=== PATIENT | female | born 1955 | race Hispanic/Latino ===

== ENCOUNTER 2020-12-01 09:18 | Inpatient (IN) | payer BC, MEDICARE, OTHER ==
[~2020-12-01] VITALS: Ht 165.1 cm; Wt 97.7 kg
[2020-12-01] MEDS ORDERED: DEXAMETHASONE SOD PHOSPHATE 10MG/ML 1ML VIAL ONE (09:55)
[2020-12-01 10:10] LABS: LYMPHOCYTES % (AUTO) 11.5 % (21.0-51.0); MEAN CORPUSCULAR HGB CONC 33.1 g/dL (32.0-36.0); MEAN CORPUSCULAR VOLUME 90.7 fL (79-99); MONOCYTES % (AUTO) 4.8 % (3.0-13.0); NEUTROPHILS % (AUTO) 83.5 % (40.0-77.0); PLATELET COUNT (AUTO) 197 K/uL (130-400); RED CELL DISTRIBUTION WIDTH 13.2 % (11.0-15.5); WHITE BLOOD COUNT (AUTO) 5.7 K/uL (4.8-10.8)
[2020-12-01 10:15] LABS: INR 1.09 (0.85-1.15); PROTHROMBIN TIME 11.6 SEC (9.6-11.6)
[2020-12-01 10:34] LABS: ALANINE AMINOTRANSFERASE 27 U/L (12-78); ALBUMIN 3.2 g/dL (3.5-5.0); ASPARTATE AMINOTRANSFERASE 30 U/L (10-37); BILIRUBIN,TOTAL 0.4 mg/dL (0.2-1.0); CARBON DIOXIDE 30 mmol/L (21-32); CHLORIDE 101 mmol/L (101-111); CREATINE KINASE, TOTAL 131 U/L (21-232); CREATININE 1.1 mg/dL (0.5-1.5); GLOMERULAR FILTR. RATE CALC 53 mL/min (>60); GLUCOSE,RANDOM 121 mg/dL (70-105); MYOGLOBIN 76 ng/mL (10-92); POTASSIUM 3.7 mmol/L (3.5-5.1); SODIUM SERUM 139 mmol/L (136-145); TOTAL PROTEIN, SERUM 7.9 g/dL (6.0-8.3); TROPONIN I < 0.04 ng/mL (0.00-0.06); UREA NITROGEN, BLOOD 11 mg/dL (7-18)
[2020-12-01] MEDS ORDERED: GUAIFENESIN-CODEINE 5 ML SYRUP ONE (10:34)
[2020-12-01] MEDS ORDERED: AZITHROMYCIN 500MG+NS 250ML 250 ML IV ONE (11:16)
[2020-12-01] MEDS ORDERED: CEFTRIAXONE 1G VIAL ONE (11:16)
[2020-12-01 11:56] VITALS: BP 13/75
[2020-12-01] MEDS ORDERED: DIPHENHYDRAMINE HCL 25 MG CAPSULE PO PRN (12:15)
[2020-12-01] MEDS ORDERED: ONDANSETRON 4MG INJ IV PRN (12:15)
[2020-12-01] MEDS: ALBUTEROL INHALER 90MCG/INH IH SCH ×3 (12:15→20:01)
[2020-12-01] MEDS ORDERED: NITROGLYCERIN 0.4 MG SL TAB SL PRN (12:15)
[2020-12-01] MEDS ORDERED: ERGOCALCIFEROL (VITAMIN D2) 50,000 UNIT CAPSULE PO SCH (12:15)
[2020-12-01] MEDS ORDERED: ACETAMINOPHEN 325 MG TAB PO PRN ×2 (12:15)
[2020-12-01] MEDS ORDERED: ASCORBIC ACID 500 MG TAB ONE (13:24)
[2020-12-01] MEDS ORDERED: ACETYLCYSTEINE 600 MG CAPSULE ONE (13:25)
[2020-12-01] MEDS ORDERED: ZINC SULFATE 220 CAPSULE ONE (13:25)
[2020-12-01] MEDS ORDERED: FAMOTIDINE 20MG TAB ONE (13:25)
[2020-12-01] MEDS ORDERED: ERGOCALCIFEROL (VITAMIN D2) 50,000 UNIT CAPSULE ONE (13:25)
[2020-12-01 16:00] VITALS: BP 123/61
[2020-12-01] MEDS: HEPARIN 5,000 UNIT VIAL SQ SCH (19:15)
[2020-12-01 20:00] VITALS: BP 129/73
[2020-12-01] MEDS: FAMOTIDINE 20MG TAB PO SCH (20:03)
[2020-12-01] MEDS: ACETYLCYSTEINE 600 MG CAPSULE PO SCH (20:03)
[2020-12-01 22:16] LABS: ABG BASE EXCESS 1.1 mmol/L (-2.0-3.0); ABG HCO3 26.4 mmol/L (21.0-28.0); ABG OXYGEN SATURATION 97.8 % (95.0-99.0); ABG PCO2 45 mmHg (32-45)
[2020-12-02] VITALS: BP 132/76
[2020-12-02] MEDS: ALBUTEROL INHALER 90MCG/INH IH SCH ×6 (00:08→20:56)
[2020-12-02] MEDS: HEPARIN 5,000 UNIT VIAL SQ SCH ×2 (03:20→10:19)
[2020-12-02 04:00] VITALS: BP 141/67
[2020-12-02 04:04] LABS: HEMATOCRIT 38.1 % (36-48); LYMPHOCYTES % (AUTO) 18.8 % (21.0-51.0); MEAN CORPUSCULAR HEMOGLOBIN 29.6 pg (27.0-33.0); MEAN CORPUSCULAR HGB CONC 32.3 g/dL (32.0-36.0); MEAN CORPUSCULAR VOLUME 91.8 fL (79-99); MONOCYTES % (AUTO) 4.2 % (3.0-13.0); NEUTROPHILS % (AUTO) 76.7 % (40.0-77.0); PLATELET COUNT (AUTO) 205 K/uL (130-400); RED BLOOD CELL COUNT(AUTO) 4.15 MIL/uL (4.00-5.50)
[2020-12-02 04:16] LABS: ALBUMIN 3.2 g/dL (3.5-5.0); BILIRUBIN,TOTAL 0.3 mg/dL (0.2-1.0); CREATININE 0.9 mg/dL (0.5-1.5); POTASSIUM 3.9 mmol/L (3.5-5.1); TOTAL PROTEIN, SERUM 8.2 g/dL (6.0-8.3)
[2020-12-02] MEDS ORDERED: PHARMACY COMMUNICATION**REMDESIVIR ORDER MISC SCH (07:15)
[2020-12-02] MEDS ORDERED: REMDESIVIR (EUA) 520 200 MG in 0.9% NACL 250ML 250 ML IV ONE (07:30)
[2020-12-02] MEDS ORDERED: COMPOUND IV REFRIGERATED 1 EACH IVSOLN MISC PRN (07:30)
[2020-12-02 08:15] VITALS: BP 165/78
[2020-12-02] MEDS ORDERED: ENOXAPARIN SODIUM 40 MG/0.4 ML SYRINGE SQ SCH (09:00)
[2020-12-02] MEDS ORDERED: DEXAMETHASONE SOD PHOSPHATE 4 MG/ML 1ML VIAL IVP SCH (09:00)
[2020-12-02] MEDS: FAMOTIDINE 20MG TAB PO SCH ×2 (09:53→19:51)
[2020-12-02] MEDS: ZINC SULFATE 220 CAPSULE PO SCH (09:53)
[2020-12-02] MEDS: ASCORBIC ACID 500 MG TAB PO SCH (09:53)
[2020-12-02] MEDS: ACETYLCYSTEINE 600 MG CAPSULE PO SCH ×2 (09:54→19:51)
[2020-12-02] MEDS: AZITHROMYCIN 500MG+NS 250ML 250 ML IV SCH (09:54)
[2020-12-02] MEDS: CEFTRIAXONE 1G VIAL IV SCH (09:54)
[2020-12-02 12:00] VITALS: BP 121/60
[2020-12-02 16:04] VITALS: BP 133/66
[2020-12-02 20:00] VITALS: BP 156/72
[2020-12-03] MEDS: ALBUTEROL INHALER 90MCG/INH IH SCH ×6 (00:19→20:26)
[2020-12-03 00:36] VITALS: BP 133/62
[2020-12-03] MEDS: REMDESIVIR LABS MISC SCH (05:04)
[2020-12-03 05:16] VITALS: BP 130/52
[2020-12-03 06:11] LABS: LYMPHOCYTES % (AUTO) 9.2 % (21.0-51.0); MEAN CORPUSCULAR HEMOGLOBIN 29.7 pg (27.0-33.0); MEAN CORPUSCULAR HGB CONC 32.2 g/dL (32.0-36.0); MEAN CORPUSCULAR VOLUME 92.3 fL (79-99); MONOCYTES % (AUTO) 3.2 % (3.0-13.0); NEUTROPHILS % (AUTO) 87.3 % (40.0-77.0); PLATELET COUNT (AUTO) 214 K/uL (130-400); RED BLOOD CELL COUNT(AUTO) 4.01 MIL/uL (4.00-5.50); RED CELL DISTRIBUTION WIDTH 13.2 % (11.0-15.5); WHITE BLOOD COUNT (AUTO) 9.5 K/uL (4.8-10.8)
[2020-12-03 06:37] LABS: ALBUMIN 2.8 g/dL (3.5-5.0); BILIRUBIN,TOTAL 0.3 mg/dL (0.2-1.0); CREATININE 0.9 mg/dL (0.5-1.5); POTASSIUM 3.8 mmol/L (3.5-5.1); TOTAL PROTEIN, SERUM 7.6 g/dL (6.0-8.3)
[2020-12-03 06:51] LABS: CRP QUANTITATIVE 296.2 mg/L (0.00-9.0)
[2020-12-03] MEDS: ACETYLCYSTEINE 600 MG CAPSULE PO SCH ×2 (07:47→20:26)
[2020-12-03] MEDS: AZITHROMYCIN 500MG+NS 250ML 250 ML IV SCH (07:47)
[2020-12-03] MEDS: CEFTRIAXONE 1G VIAL IV SCH (07:48)
[2020-12-03] MEDS: ZINC SULFATE 220 CAPSULE PO SCH (07:48)
[2020-12-03] MEDS: ASCORBIC ACID 500 MG TAB PO SCH (07:48)
[2020-12-03] MEDS: ENOXAPARIN SODIUM 40 MG/0.4 ML SYRINGE SQ SCH (07:48)
[2020-12-03] MEDS: FAMOTIDINE 20MG TAB PO SCH ×2 (07:48→20:26)
[2020-12-03 08:21] VITALS: BP 126/58
[2020-12-03 11:20] VITALS: BP 145/77
[2020-12-03] MEDS: REMDESIVIR (EUA) 520 100 MG in 0.9% NACL 250ML 250 ML IV SCH (12:20)
[2020-12-03] MEDS ORDERED: GUAIFENESIN-DM 200/20 MG 10 ML PO PRN (12:45)
[2020-12-03] MEDS: SOLU-MEDROL 125MG VIAL IVP SCH ×2 (15:15→20:27)
[2020-12-03] MEDS ORDERED: SOLU-MEDROL 125MG VIAL ONE (15:15)
[2020-12-03 16:19] VITALS: BP 165/77
[2020-12-03 20:31] VITALS: BP 169/56
[2020-12-04] VITALS (38 sets, daily range): BP systolic 134–167; BP diastolic 43–88
[2020-12-04] MEDS: ALBUTEROL INHALER 90MCG/INH IH SCH ×6 (01:05→21:00)
[2020-12-04 03:18] LABS: BASOPHILS % (AUTO) 0.1 % (0.0-5.0); HEMATOCRIT 37.4 % (36-48); MEAN CORPUSCULAR HGB CONC 32.9 g/dL (32.0-36.0); MEAN CORPUSCULAR VOLUME 91.2 fL (79-99); MONOCYTES % (AUTO) 1.6 % (3.0-13.0); NEUTROPHILS % (AUTO) 90.8 % (40.0-77.0); PLATELET COUNT (AUTO) 228 K/uL (130-400); RED CELL DISTRIBUTION WIDTH 13.2 % (11.0-15.5); WHITE BLOOD COUNT (AUTO) 8.2 K/uL (4.8-10.8)
[2020-12-04] MEDS: REMDESIVIR LABS MISC SCH (03:19)
[2020-12-04] MEDS: SOLU-MEDROL 125MG VIAL IVP SCH ×4 (03:19→21:21)
[2020-12-04 03:30] LABS: ALBUMIN 2.7 g/dL (3.5-5.0); BILIRUBIN,TOTAL 0.3 mg/dL (0.2-1.0); CREATININE 0.9 mg/dL (0.5-1.5); POTASSIUM 3.9 mmol/L (3.5-5.1); TOTAL PROTEIN, SERUM 7.8 g/dL (6.0-8.3)
[2020-12-04 03:44] LABS: CRP QUANTITATIVE 382.2 mg/L (0.00-9.0)
[2020-12-04] MEDS: FAMOTIDINE 20MG TAB PO SCH ×2 (09:13→21:18)
[2020-12-04] MEDS: ACETYLCYSTEINE 600 MG CAPSULE PO SCH ×2 (09:13→21:19)
[2020-12-04] MEDS: CEFTRIAXONE 1G VIAL IV SCH (09:13)
[2020-12-04] MEDS: AZITHROMYCIN 500MG+NS 250ML 250 ML IV SCH (09:13)
[2020-12-04] MEDS: ZINC SULFATE 220 CAPSULE PO SCH (09:13)
[2020-12-04] MEDS: ASCORBIC ACID 500 MG TAB PO SCH (09:13)
[2020-12-04] MEDS: ENOXAPARIN SODIUM 40 MG/0.4 ML SYRINGE SQ SCH (09:14)
[2020-12-04 12:39] LABS: ABG BASE EXCESS 0.1 mmol/L (-2.0-3.0); ABG HCO3 24.6 mmol/L (21.0-28.0); ABG PCO2 40 mmHg (32-45)
[2020-12-04] MEDS ORDERED: LORAZEPAM 2 MG/ML 1 ML VIAL IVP PRN (12:45)
[2020-12-04] MEDS: REMDESIVIR (EUA) 520 100 MG in 0.9% NACL 250ML 250 ML IV SCH (13:20)
[2020-12-05] VITALS (95 sets, daily range): BP systolic 117–175; BP diastolic 44–109
[2020-12-05] MEDS: ALBUTEROL INHALER 90MCG/INH IH SCH ×6 (00:15→20:31)
[2020-12-05] MEDS: SOLU-MEDROL 125MG VIAL IVP SCH ×4 (02:51→20:42)
[2020-12-05 04:57] LABS: ALBUMIN 2.6 g/dL (3.5-5.0); BILIRUBIN,DIRECT 0.1 mg/dL (0.0-0.3); BILIRUBIN,TOTAL 0.3 mg/dL (0.2-1.0); CREATININE 0.9 mg/dL (0.5-1.5); POTASSIUM 3.8 mmol/L (3.5-5.1); TOTAL PROTEIN, SERUM 7.4 g/dL (6.0-8.3)
[2020-12-05 05:11] LABS: CRP QUANTITATIVE 221.9 mg/L (0.00-9.0)
[2020-12-05] MEDS: REMDESIVIR LABS MISC SCH (06:00)
[2020-12-05 09:46] LABS: ABG BASE EXCESS 2.5 mmol/L (-2.0-3.0); ABG HCO3 26.9 mmol/L (21.0-28.0); ABG OXYGEN SATURATION 95.9 % (95.0-99.0); ABG PCO2 41 mmHg (32-45)
[2020-12-05] MEDS: ASCORBIC ACID 500 MG TAB PO SCH (09:57)
[2020-12-05] MEDS: ACETYLCYSTEINE 600 MG CAPSULE PO SCH ×2 (09:57→20:41)
[2020-12-05] MEDS: FAMOTIDINE 20MG TAB PO SCH ×2 (09:57→20:42)
[2020-12-05] MEDS: CEFTRIAXONE 1G VIAL IV SCH (09:57)
[2020-12-05] MEDS: ENOXAPARIN SODIUM 40 MG/0.4 ML SYRINGE SQ SCH (09:57)
[2020-12-05] MEDS: ZINC SULFATE 220 CAPSULE PO SCH (09:57)
[2020-12-05] MEDS: AZITHROMYCIN 500MG+NS 250ML 250 ML IV SCH (09:57)
[2020-12-05] MEDS: REMDESIVIR (EUA) 520 100 MG in 0.9% NACL 250ML 250 ML IV SCH (14:57)
[2020-12-06] VITALS (46 sets, daily range): BP systolic 117–178; BP diastolic 38–93
[2020-12-06] MEDS: ALBUTEROL INHALER 90MCG/INH IH SCH ×6 (00:13→21:21)
[2020-12-06] MEDS: SOLU-MEDROL 125MG VIAL IVP SCH ×4 (03:26→21:20)
[2020-12-06] MEDS: REMDESIVIR LABS MISC SCH (05:21)
[2020-12-06 06:09] LABS: BASOPHILS % (AUTO) 0.1 % (0.0-5.0); HEMATOCRIT 38.4 % (36-48); LYMPHOCYTES % (AUTO) 5.1 % (21.0-51.0); MEAN CORPUSCULAR HEMOGLOBIN 29.8 pg (27.0-33.0); MEAN CORPUSCULAR HGB CONC 32.3 g/dL (32.0-36.0); MEAN CORPUSCULAR VOLUME 92.3 fL (79-99); NEUTROPHILS % (AUTO) 89.5 % (40.0-77.0); NUCLEATED RED BLOOD CELLS 0.2 % (0.0-0.19); PLATELET COUNT (AUTO) 292 K/uL (130-400); RED BLOOD CELL COUNT(AUTO) 4.16 MIL/uL (4.00-5.50); RED CELL DISTRIBUTION WIDTH 13.2 % (11.0-15.5); WHITE BLOOD COUNT (AUTO) 8.8 K/uL (4.8-10.8)
[2020-12-06 07:17] LABS: ALBUMIN 2.7 g/dL (3.5-5.0); BILIRUBIN,TOTAL 0.3 mg/dL (0.2-1.0); CREATININE 0.9 mg/dL (0.5-1.5); CRP QUANTITATIVE 119.2 mg/L (0.00-9.0); POTASSIUM 3.7 mmol/L (3.5-5.1); TOTAL PROTEIN, SERUM 7.2 g/dL (6.0-8.3)
[2020-12-06] MEDS: ACETYLCYSTEINE 600 MG CAPSULE PO SCH ×2 (07:58→21:20)
[2020-12-06] MEDS: FAMOTIDINE 20MG TAB PO SCH ×2 (07:58→21:20)
[2020-12-06] MEDS: ZINC SULFATE 220 CAPSULE PO SCH (07:58)
[2020-12-06] MEDS: ENOXAPARIN SODIUM 40 MG/0.4 ML SYRINGE SQ SCH (07:58)
[2020-12-06] MEDS: ASCORBIC ACID 500 MG TAB PO SCH (07:58)
[2020-12-06] MEDS ORDERED: LABETALOL 20MG SYG IV PRN (08:30)
[2020-12-06] MEDS: REMDESIVIR (EUA) 520 100 MG in 0.9% NACL 250ML 250 ML IV SCH (16:08)
[2020-12-06 21:56] LABS: APPEARANCE,URINE Clear (CLEAR); BILIRUBIN,URINE Negative (NEGATIVE); COLOR,URINE Yellow (YELLOW); GLUCOSE, URINE (UA) Negative (NEGATIVE); KETONES,URINE Trace mg/dL (NEGATIVE); LEUKOCYTE ESTERASE ,URINE Negative (NEGATIVE); NITRATE,URINE Negative (NEGATIVE); OCCULT BLOOD,URINE Negative (NEGATIVE); PROTEIN,URINE POS 1+ mg/dL (NEGATIVE)
[2020-12-06 22:02] LABS: BACTERIA,URINE Rare /HPF (None Seen); MUCUS,URINE Rare LPF (None Seen); RBC,URINE 0-1 /HPF (0-1); SQUAMOUS EPITHELIAL CELL,UR Few /HPF (0-2); WBC,URINE 0-1 /HPF (0-1); YEAST,URINE BUDDING Rare /HPF (None Seen)
[2020-12-07] VITALS (20 sets, daily range): BP systolic 131–178; BP diastolic 53–103
[2020-12-07] MEDS: ALBUTEROL INHALER 90MCG/INH IH SCH ×6 (00:51→20:12)
[2020-12-07] MEDS: SOLU-MEDROL 125MG VIAL IVP SCH ×4 (04:01→20:18)
[2020-12-07] MEDS: REMDESIVIR LABS MISC SCH (05:12)
[2020-12-07 05:35] LABS: BASOPHILS % (AUTO) 0.2 % (0.0-5.0); HEMATOCRIT 38.1 % (36-48); LYMPHOCYTES % (AUTO) 5.7 % (21.0-51.0); MEAN CORPUSCULAR HEMOGLOBIN 29.7 pg (27.0-33.0); MEAN CORPUSCULAR HGB CONC 32.8 g/dL (32.0-36.0); MEAN CORPUSCULAR VOLUME 90.5 fL (79-99); MONOCYTES % (AUTO) 3.4 % (3.0-13.0); NEUTROPHILS % (AUTO) 87.8 % (40.0-77.0); NUCLEATED RED BLOOD CELLS 0.3 % (0.0-0.19); PLATELET COUNT (AUTO) 285 K/uL (130-400); RED BLOOD CELL COUNT(AUTO) 4.21 MIL/uL (4.00-5.50); RED CELL DISTRIBUTION WIDTH 12.8 % (11.0-15.5); WHITE BLOOD COUNT (AUTO) 6.5 K/uL (4.8-10.8)
[2020-12-07 05:54] LABS: HEMOGLOBIN A1C 5.8 % (4.0-6.0)
[2020-12-07 06:01] LABS: CREATININE 0.9 mg/dL (0.5-1.5); CRP QUANTITATIVE 65.4 mg/L (0.00-9.0); POTASSIUM 3.7 mmol/L (3.5-5.1)
[2020-12-07] MEDS ORDERED: AMLODIPINE 5 MG TAB ONE (08:40)
[2020-12-07] MEDS: ACETYLCYSTEINE 600 MG CAPSULE PO SCH ×2 (08:41→20:11)
[2020-12-07] MEDS: AMLODIPINE 5 MG TAB PO SCH (08:41)
[2020-12-07] MEDS: ENOXAPARIN SODIUM 40 MG/0.4 ML SYRINGE SQ SCH (08:41)
[2020-12-07] MEDS: ASCORBIC ACID 500 MG TAB PO SCH (08:42)
[2020-12-07] MEDS: ZINC SULFATE 220 CAPSULE PO SCH (08:42)
[2020-12-07] MEDS: FAMOTIDINE 20MG TAB PO SCH ×2 (08:42→20:10)
[2020-12-08] VITALS (24 sets, daily range): BP systolic 118–155; BP diastolic 52–97
[2020-12-08] MEDS: ALBUTEROL INHALER 90MCG/INH IH SCH ×6 (00:33→20:16)
[2020-12-08] MEDS: SOLU-MEDROL 125MG VIAL IVP SCH ×4 (03:01→20:16)
[2020-12-08 04:54] LABS: BASOPHILS % (AUTO) 0.2 % (0.0-5.0); HEMATOCRIT 40.3 % (36-48); MEAN CORPUSCULAR HEMOGLOBIN 29.4 pg (27.0-33.0); MEAN CORPUSCULAR HGB CONC 32.5 g/dL (32.0-36.0); MEAN CORPUSCULAR VOLUME 90.4 fL (79-99); MONOCYTES % (AUTO) 3.5 % (3.0-13.0); NEUTROPHILS % (AUTO) 88.1 % (40.0-77.0); PLATELET COUNT (AUTO) 326 K/uL (130-400); RED BLOOD CELL COUNT(AUTO) 4.46 MIL/uL (4.00-5.50); RED CELL DISTRIBUTION WIDTH 12.7 % (11.0-15.5); WHITE BLOOD COUNT (AUTO) 9.7 K/uL (4.8-10.8)
[2020-12-08 05:12] LABS: ALBUMIN 2.7 g/dL (3.5-5.0); BILIRUBIN,TOTAL 0.4 mg/dL (0.2-1.0); CREATININE 0.9 mg/dL (0.5-1.5); CRP QUANTITATIVE 37.5 mg/L (0.00-9.0); POTASSIUM 3.9 mmol/L (3.5-5.1)
[2020-12-08] MEDS: ASCORBIC ACID 500 MG TAB PO SCH (08:27)
[2020-12-08] MEDS: ACETYLCYSTEINE 600 MG CAPSULE PO SCH ×2 (08:27→20:14)
[2020-12-08] MEDS: AMLODIPINE 5 MG TAB PO SCH (08:27)
[2020-12-08] MEDS: ZINC SULFATE 220 CAPSULE PO SCH (08:27)
[2020-12-08] MEDS: ENOXAPARIN SODIUM 40 MG/0.4 ML SYRINGE SQ SCH (08:27)
[2020-12-08] MEDS: FAMOTIDINE 20MG TAB PO SCH ×2 (08:27→20:14)
[2020-12-09] VITALS (21 sets, daily range): BP systolic 117–149; BP diastolic 49–105
[2020-12-09] MEDS: ALBUTEROL INHALER 90MCG/INH IH SCH ×6 (00:30→20:52)
[2020-12-09] MEDS: SOLU-MEDROL 125MG VIAL IVP SCH ×4 (03:08→20:52)
[2020-12-09 05:39] LABS: BASOPHILS % (AUTO) 0.3 % (0.0-5.0); HEMATOCRIT 39.3 % (36-48); LYMPHOCYTES % (AUTO) 2.4 % (21.0-51.0); MEAN CORPUSCULAR HEMOGLOBIN 29.9 pg (27.0-33.0); MEAN CORPUSCULAR HGB CONC 33.3 g/dL (32.0-36.0); MEAN CORPUSCULAR VOLUME 89.7 fL (79-99); MONOCYTES % (AUTO) 2.4 % (3.0-13.0); NEUTROPHILS % (AUTO) 90.9 % (40.0-77.0); NUCLEATED RED BLOOD CELLS 0.2 % (0.0-0.19); PLATELET COUNT (AUTO) 304 K/uL (130-400); RED BLOOD CELL COUNT(AUTO) 4.38 MIL/uL (4.00-5.50); RED CELL DISTRIBUTION WIDTH 12.6 % (11.0-15.5); WHITE BLOOD COUNT (AUTO) 10.1 K/uL (4.8-10.8)
[2020-12-09 06:00] LABS: CREATININE 0.9 mg/dL (0.5-1.5); CRP QUANTITATIVE 22.2 mg/L (0.00-9.0); POTASSIUM 4.1 mmol/L (3.5-5.1)
[2020-12-09] MEDS: ACETYLCYSTEINE 600 MG CAPSULE PO SCH ×2 (08:32→20:53)
[2020-12-09] MEDS: FAMOTIDINE 20MG TAB PO SCH ×2 (08:32→20:52)
[2020-12-09] MEDS: ENOXAPARIN SODIUM 40 MG/0.4 ML SYRINGE SQ SCH (08:32)
[2020-12-09] MEDS: ZINC SULFATE 220 CAPSULE PO SCH (08:33)
[2020-12-09] MEDS: ASCORBIC ACID 500 MG TAB PO SCH (08:33)
[2020-12-09] MEDS: AMLODIPINE 5 MG TAB PO SCH (08:33)
[2020-12-10] VITALS (7 sets, daily range): BP systolic 109–147; BP diastolic 56–72
[2020-12-10] MEDS: ALBUTEROL INHALER 90MCG/INH IH SCH ×5 (00:21→20:47)
[2020-12-10] MEDS: SOLU-MEDROL 125MG VIAL IVP SCH ×4 (04:22→21:52)
[2020-12-10 07:49] LABS: BASOPHILS % (AUTO) 0.2 % (0.0-5.0); HEMATOCRIT 40.3 % (36-48); LYMPHOCYTES % (AUTO) 2.9 % (21.0-51.0); MEAN CORPUSCULAR HEMOGLOBIN 29.6 pg (27.0-33.0); MEAN CORPUSCULAR HGB CONC 32.8 g/dL (32.0-36.0); MEAN CORPUSCULAR VOLUME 90.4 fL (79-99); MONOCYTES % (AUTO) 2.3 % (3.0-13.0); NEUTROPHILS % (AUTO) 91.3 % (40.0-77.0); NUCLEATED RED BLOOD CELLS 0.2 % (0.0-0.19); PLATELET COUNT (AUTO) 293 K/uL (130-400); RED BLOOD CELL COUNT(AUTO) 4.46 MIL/uL (4.00-5.50); RED CELL DISTRIBUTION WIDTH 12.8 % (11.0-15.5); WHITE BLOOD COUNT (AUTO) 11.2 K/uL (4.8-10.8)
[2020-12-10 08:20] LABS: ALBUMIN 2.7 g/dL (3.5-5.0); BILIRUBIN,TOTAL 0.6 mg/dL (0.2-1.0); CREATININE 0.9 mg/dL (0.5-1.5); CRP QUANTITATIVE 17.4 mg/L (0.00-9.0); TOTAL PROTEIN, SERUM 6.6 g/dL (6.0-8.3)
[2020-12-10 08:55] LABS: ERYTHROCYTE SEDIMENTATION RATE 68 MM/HR (0-30)
[2020-12-10] MEDS: ZINC SULFATE 220 CAPSULE PO SCH (10:30)
[2020-12-10] MEDS: ACETYLCYSTEINE 600 MG CAPSULE PO SCH ×2 (10:30→20:41)
[2020-12-10] MEDS: AMLODIPINE 5 MG TAB PO SCH (10:31)
[2020-12-10] MEDS: FAMOTIDINE 20MG TAB PO SCH ×2 (10:31→20:41)
[2020-12-10] MEDS: ASCORBIC ACID 500 MG TAB PO SCH (10:31)
[2020-12-10] MEDS: ENOXAPARIN SODIUM 40 MG/0.4 ML SYRINGE SQ SCH (10:35)
[2020-12-10 20:41] LABS: HEMATOCRIT 38.7 % (36-48); MEAN CORPUSCULAR HEMOGLOBIN 29.4 pg (27.0-33.0); MEAN CORPUSCULAR HGB CONC 32.3 g/dL (32.0-36.0); MEAN CORPUSCULAR VOLUME 91.1 fL (79-99); RED BLOOD CELL COUNT(AUTO) 4.25 MIL/uL (4.00-5.50); WHITE BLOOD COUNT (AUTO) 13.1 K/uL (4.8-10.8)
[2020-12-11] VITALS: BP 136/61
[2020-12-11] MEDS: ALBUTEROL INHALER 90MCG/INH IH SCH ×6 (00:30→20:41)
[2020-12-11] MEDS: SOLU-MEDROL 125MG VIAL IVP SCH ×4 (03:39→20:32)
[2020-12-11 04:00] VITALS: BP 121/55
[2020-12-11 05:51] LABS: BASOPHILS % (AUTO) 0.2 % (0.0-5.0); HEMATOCRIT 37.6 % (36-48); LYMPHOCYTES % (AUTO) 2.2 % (21.0-51.0); MEAN CORPUSCULAR HEMOGLOBIN 29.7 pg (27.0-33.0); NEUTROPHILS % (AUTO) 92.8 % (40.0-77.0); PLATELET COUNT (AUTO) 239 K/uL (130-400); RED BLOOD CELL COUNT(AUTO) 4.18 MIL/uL (4.00-5.50); RED CELL DISTRIBUTION WIDTH 12.8 % (11.0-15.5); WHITE BLOOD COUNT (AUTO) 11.4 K/uL (4.8-10.8)
[2020-12-11 06:02] LABS: ALBUMIN 2.4 g/dL (3.5-5.0); BILIRUBIN,TOTAL 0.5 mg/dL (0.2-1.0); CREATININE 0.9 mg/dL (0.5-1.5); MAGNESIUM 2.4 mg/dL (1.80-2.40); POTASSIUM 4.2 mmol/L (3.5-5.1)
[2020-12-11 08:00] VITALS: BP 135/68
[2020-12-11] MEDS: AMLODIPINE 5 MG TAB PO SCH (09:05)
[2020-12-11] MEDS: ZINC SULFATE 220 CAPSULE PO SCH (09:05)
[2020-12-11] MEDS: ASCORBIC ACID 500 MG TAB PO SCH (09:05)
[2020-12-11] MEDS: ACETYLCYSTEINE 600 MG CAPSULE PO SCH ×2 (09:05→20:32)
[2020-12-11] MEDS: FAMOTIDINE 20MG TAB PO SCH ×2 (09:05→20:32)
[2020-12-11] MEDS: ENOXAPARIN SODIUM 40 MG/0.4 ML SYRINGE SQ SCH (09:09)
[2020-12-11] MEDS: FLUCONAZOLE 200 MG/NS 100 ML 100 ML IV SCH (11:20)
[2020-12-11 12:00] VITALS: BP 146/57
[2020-12-11 16:00] VITALS: BP 145/74
[2020-12-11 19:00] VITALS: BP 129/76
[2020-12-12] VITALS: BP 140/68
[2020-12-12] MEDS: ALBUTEROL INHALER 90MCG/INH IH SCH ×3 (01:34→20:37)
[2020-12-12] MEDS: SOLU-MEDROL 125MG VIAL IVP SCH ×4 (02:59→20:25)
[2020-12-12 03:06] LABS: ABG BASE EXCESS 2.2 mmol/L (-2.0-3.0); ABG HCO3 26.1 mmol/L (21.0-28.0); ABG OXYGEN SATURATION 90.9 % (95.0-99.0); ABG PCO2 39 mmHg (32-45)
[2020-12-12 04:00] VITALS: BP 133/67
[2020-12-12 05:38] LABS: BASOPHILS % (AUTO) 0.1 % (0.0-5.0); HEMATOCRIT 37.8 % (36-48); LYMPHOCYTES % (AUTO) 2.1 % (21.0-51.0); MEAN CORPUSCULAR HEMOGLOBIN 29.2 pg (27.0-33.0); MEAN CORPUSCULAR HGB CONC 32.5 g/dL (32.0-36.0); MEAN CORPUSCULAR VOLUME 89.8 fL (79-99); MONOCYTES % (AUTO) 2.1 % (3.0-13.0); NEUTROPHILS % (AUTO) 93.7 % (40.0-77.0); PLATELET COUNT (AUTO) 213 K/uL (130-400); RED BLOOD CELL COUNT(AUTO) 4.21 MIL/uL (4.00-5.50); WHITE BLOOD COUNT (AUTO) 11.1 K/uL (4.8-10.8)
[2020-12-12 06:02] LABS: ALBUMIN 2.4 g/dL (3.5-5.0); BILIRUBIN,TOTAL 0.4 mg/dL (0.2-1.0); CREATININE 0.8 mg/dL (0.5-1.5); POTASSIUM 4.1 mmol/L (3.5-5.1); TOTAL PROTEIN, SERUM 5.9 g/dL (6.0-8.3)
[2020-12-12] MEDS: ACETYLCYSTEINE 600 MG CAPSULE PO SCH ×2 (09:00→20:25)
[2020-12-12] MEDS: FAMOTIDINE 20MG TAB PO SCH ×2 (09:00→20:25)
[2020-12-12] MEDS: AMLODIPINE 5 MG TAB PO SCH (09:00)
[2020-12-12] MEDS: FLUCONAZOLE 200 MG/NS 100 ML 100 ML IV SCH (09:00)
[2020-12-12] MEDS: ASCORBIC ACID 500 MG TAB PO SCH (09:00)
[2020-12-12] MEDS: ENOXAPARIN SODIUM 40 MG/0.4 ML SYRINGE SQ SCH (09:00)
[2020-12-12] MEDS: ZINC SULFATE 220 CAPSULE PO SCH (09:00)
[2020-12-12 09:03] VITALS: BP 131/62
[2020-12-12 11:47] VITALS: BP 136/62
[2020-12-12 15:35] VITALS: BP 162/67
[2020-12-12 20:07] VITALS: BP 127/51
[2020-12-13] VITALS: BP 134/79
[2020-12-13] MEDS: ALBUTEROL INHALER 90MCG/INH IH SCH ×3 (00:35→21:03)
[2020-12-13] MEDS: SOLU-MEDROL 125MG VIAL IVP SCH ×4 (03:43→20:40)
[2020-12-13 04:16] VITALS: BP 135/78
[2020-12-13 08:36] VITALS: BP 165/66
[2020-12-13] MEDS: AMLODIPINE 5 MG TAB PO SCH (09:18)
[2020-12-13] MEDS: FLUCONAZOLE 200 MG/NS 100 ML 100 ML IV SCH (09:18)
[2020-12-13] MEDS: ASCORBIC ACID 500 MG TAB PO SCH (09:18)
[2020-12-13] MEDS: ZINC SULFATE 220 CAPSULE PO SCH (09:18)
[2020-12-13] MEDS: ENOXAPARIN SODIUM 40 MG/0.4 ML SYRINGE SQ SCH (09:18)
[2020-12-13] MEDS: ACETYLCYSTEINE 600 MG CAPSULE PO SCH ×2 (09:18→20:39)
[2020-12-13] MEDS: FAMOTIDINE 20MG TAB PO SCH ×2 (09:18→20:39)
[2020-12-13 13:46] VITALS: BP 117/58
[2020-12-13 16:00] VITALS: BP 165/66
[2020-12-13 20:07] VITALS: BP 128/78
[2020-12-14] VITALS: BP 130/71
[2020-12-14] MEDS: ALBUTEROL INHALER 90MCG/INH IH SCH ×7 (00:25→23:45)
[2020-12-14] MEDS: SOLU-MEDROL 125MG VIAL IVP SCH ×4 (03:49→20:10)
[2020-12-14 03:54] VITALS: BP 127/64
[2020-12-14 04:32] LABS: BASOPHILS % (AUTO) 0.2 % (0.0-5.0); HEMATOCRIT 38.3 % (36-48); LYMPHOCYTES % (AUTO) 1.6 % (21.0-51.0); MEAN CORPUSCULAR HEMOGLOBIN 29.7 pg (27.0-33.0); MEAN CORPUSCULAR HGB CONC 32.4 g/dL (32.0-36.0); MEAN CORPUSCULAR VOLUME 91.6 fL (79-99); MONOCYTES % (AUTO) 1.8 % (3.0-13.0); NEUTROPHILS % (AUTO) 95.1 % (40.0-77.0); NUCLEATED RED BLOOD CELLS 0.2 % (0.0-0.19); PLATELET COUNT (AUTO) 186 K/uL (130-400); RED BLOOD CELL COUNT(AUTO) 4.18 MIL/uL (4.00-5.50); RED CELL DISTRIBUTION WIDTH 13.2 % (11.0-15.5); WHITE BLOOD COUNT (AUTO) 11.6 K/uL (4.8-10.8)
[2020-12-14 04:42] LABS: CREATININE 0.8 mg/dL (0.5-1.5); POTASSIUM 4.1 mmol/L (3.5-5.1)
[2020-12-14 08:00] VITALS: BP 141/69
[2020-12-14] MEDS: ASCORBIC ACID 500 MG TAB PO SCH (09:16)
[2020-12-14] MEDS: AMLODIPINE 5 MG TAB PO SCH (09:16)
[2020-12-14] MEDS: ACETYLCYSTEINE 600 MG CAPSULE PO SCH ×2 (09:16→20:09)
[2020-12-14] MEDS: FAMOTIDINE 20MG TAB PO SCH ×2 (09:16→20:10)
[2020-12-14] MEDS: ZINC SULFATE 220 CAPSULE PO SCH (09:16)
[2020-12-14] MEDS: FLUCONAZOLE 200 MG/NS 100 ML 100 ML IV SCH (09:17)
[2020-12-14] MEDS: ENOXAPARIN SODIUM 40 MG/0.4 ML SYRINGE SQ SCH (09:17)
[2020-12-14 12:00] VITALS: BP 144/85
[2020-12-14 16:00] VITALS: BP 128/62
[2020-12-14 20:00] VITALS: BP 134/66
[2020-12-15] VITALS: BP 129/65
[2020-12-15] MEDS: SOLU-MEDROL 125MG VIAL IVP SCH ×4 (03:35→21:24)
[2020-12-15] MEDS: ALBUTEROL INHALER 90MCG/INH IH SCH ×4 (03:35→20:15)
[2020-12-15 04:00] VITALS: BP 133/60
[2020-12-15 09:11] VITALS: BP 151/74
[2020-12-15] MEDS: FAMOTIDINE 20MG TAB PO SCH ×2 (09:32→21:24)
[2020-12-15] MEDS: ASCORBIC ACID 500 MG TAB PO SCH (09:32)
[2020-12-15] MEDS: ZINC SULFATE 220 CAPSULE PO SCH (09:32)
[2020-12-15] MEDS: ACETYLCYSTEINE 600 MG CAPSULE PO SCH ×2 (09:32→21:23)
[2020-12-15] MEDS: AMLODIPINE 5 MG TAB PO SCH (09:33)
[2020-12-15] MEDS: ENOXAPARIN SODIUM 40 MG/0.4 ML SYRINGE SQ SCH (09:33)
[2020-12-15] MEDS ORDERED: LACTULOSE 20 GM/30 ML UDCUP ONE (09:36)
[2020-12-15 12:38] VITALS: BP 145/80
[2020-12-15] MEDS: FLUCONAZOLE 200 MG/NS 100 ML 100 ML IV SCH (17:38)
[2020-12-15 18:52] VITALS: BP 122/65
[2020-12-15 19:00] VITALS: BP 131/65
[2020-12-16] VITALS: BP 133/57
[2020-12-16] MEDS: ALBUTEROL INHALER 90MCG/INH IH SCH ×4 (00:15→20:27)
[2020-12-16 04:00] VITALS: BP 130/62
[2020-12-16] MEDS: SOLU-MEDROL 125MG VIAL IVP SCH ×4 (04:47→20:23)
[2020-12-16 04:52] LABS: BASOPHILS % (AUTO) 0.1 % (0.0-5.0); HEMATOCRIT 39.2 % (36-48); LYMPHOCYTES % (AUTO) 2.1 % (21.0-51.0); MEAN CORPUSCULAR HGB CONC 33.2 g/dL (32.0-36.0); MEAN CORPUSCULAR VOLUME 90.3 fL (79-99); MONOCYTES % (AUTO) 1.7 % (3.0-13.0); NEUTROPHILS % (AUTO) 95.3 % (40.0-77.0); PLATELET COUNT (AUTO) 139 K/uL (130-400); RED BLOOD CELL COUNT(AUTO) 4.34 MIL/uL (4.00-5.50); RED CELL DISTRIBUTION WIDTH 13.3 % (11.0-15.5); WHITE BLOOD COUNT (AUTO) 9.5 K/uL (4.8-10.8)
[2020-12-16 05:20] LABS: CREATININE 0.8 mg/dL (0.5-1.5); POTASSIUM 4.4 mmol/L (3.5-5.1)
[2020-12-16 08:00] VITALS: BP 138/70
[2020-12-16] MEDS: FAMOTIDINE 20MG TAB PO SCH ×2 (10:07→20:23)
[2020-12-16] MEDS: ZINC SULFATE 220 CAPSULE PO SCH (10:07)
[2020-12-16] MEDS: ACETYLCYSTEINE 600 MG CAPSULE PO SCH ×2 (10:07→20:23)
[2020-12-16] MEDS: AMLODIPINE 5 MG TAB PO SCH (10:07)
[2020-12-16] MEDS: ASCORBIC ACID 500 MG TAB PO SCH (10:07)
[2020-12-16] MEDS: ENOXAPARIN SODIUM 40 MG/0.4 ML SYRINGE SQ SCH (10:08)
[2020-12-16 12:00] VITALS: BP 140/68
[2020-12-16] MEDS: FLUCONAZOLE 200 MG/NS 100 ML 100 ML IV SCH (15:50)
[2020-12-16 16:00] VITALS: BP 148/63
[2020-12-16 19:00] VITALS: BP 120/66
[2020-12-16] MEDS: LACTULOSE 20 GM/30 ML UDCUP PO PRN (20:29)
[2020-12-17] VITALS: BP 130/70
[2020-12-17] MEDS: ALBUTEROL INHALER 90MCG/INH IH SCH ×3 (00:15→20:00)
[2020-12-17 04:00] VITALS: BP 137/65
[2020-12-17] MEDS: SOLU-MEDROL 125MG VIAL IVP SCH ×4 (04:11→20:00)
[2020-12-17 06:04] LABS: BASOPHILS % (AUTO) 0.1 % (0.0-5.0); HEMATOCRIT 40.4 % (36-48); LYMPHOCYTES % (AUTO) 2.3 % (21.0-51.0); MEAN CORPUSCULAR HEMOGLOBIN 29.8 pg (27.0-33.0); MEAN CORPUSCULAR HGB CONC 33.2 g/dL (32.0-36.0); NEUTROPHILS % (AUTO) 95.7 % (40.0-77.0); PLATELET COUNT (AUTO) 145 K/uL (130-400); RED BLOOD CELL COUNT(AUTO) 4.49 MIL/uL (4.00-5.50); RED CELL DISTRIBUTION WIDTH 13.3 % (11.0-15.5); WHITE BLOOD COUNT (AUTO) 9.7 K/uL (4.8-10.8)
[2020-12-17 06:06] LABS: CREATININE 0.8 mg/dL (0.5-1.5); CRP QUANTITATIVE 6.4 mg/L (0.00-9.0); POTASSIUM 4.2 mmol/L (3.5-5.1)
[2020-12-17] MEDS: LACTULOSE 20 GM/30 ML UDCUP PO PRN (06:46)
[2020-12-17] MEDS: ZINC SULFATE 220 CAPSULE PO SCH (08:35)
[2020-12-17] MEDS: FAMOTIDINE 20MG TAB PO SCH ×2 (08:35→19:57)
[2020-12-17] MEDS: ACETYLCYSTEINE 600 MG CAPSULE PO SCH ×2 (08:35→19:57)
[2020-12-17] MEDS: ASCORBIC ACID 500 MG TAB PO SCH (08:35)
[2020-12-17] MEDS: AMLODIPINE 5 MG TAB PO SCH (08:35)
[2020-12-17 09:14] VITALS: BP 141/72
[2020-12-17 12:00] VITALS: BP 126/71
[2020-12-17] MEDS: ENOXAPARIN SODIUM 40 MG/0.4 ML SYRINGE SQ SCH (12:01)
[2020-12-17] MEDS: FLUCONAZOLE 200 MG/NS 100 ML 100 ML IV SCH (12:01)
[2020-12-17 17:23] VITALS: BP 145/69
[2020-12-17 19:00] VITALS: BP 127/53
[2020-12-17] MEDS: INSULIN GLARGINE 100 UNITS/ML 10 ML VIAL SQ SCH (19:58)
[2020-12-17] MEDS ORDERED: DEXTROSE 50%-WATER 50 ML DISP.SYRIN IV PRN (20:45)
[2020-12-17] MEDS ORDERED: GLUCAGON 1MG KIT 1 MG ML IM PRN (20:45)
[2020-12-17] MEDS: INSULIN HUMULIN R 100 UNIT/ML 3ML SQ SCH (21:00)
[2020-12-18] VITALS: BP 132/54
[2020-12-18] MEDS: ALBUTEROL INHALER 90MCG/INH IH SCH ×2 (03:26→20:24)
[2020-12-18] MEDS: SOLU-MEDROL 125MG VIAL IVP SCH ×4 (03:26→20:24)
[2020-12-18 04:00] VITALS: BP 122/76
[2020-12-18 04:17] LABS: BASOPHILS % (AUTO) 0.1 % (0.0-5.0); MEAN CORPUSCULAR HEMOGLOBIN 29.5 pg (27.0-33.0); MEAN CORPUSCULAR HGB CONC 33.3 g/dL (32.0-36.0); MEAN CORPUSCULAR VOLUME 88.6 fL (79-99); MONOCYTES % (AUTO) 1.2 % (3.0-13.0); NEUTROPHILS % (AUTO) 95.7 % (40.0-77.0); PLATELET COUNT (AUTO) 135 K/uL (130-400); RED CELL DISTRIBUTION WIDTH 13.2 % (11.0-15.5)
[2020-12-18 04:28] LABS: CARBON DIOXIDE 29 mmol/L (21-32); CHLORIDE 106 mmol/L (101-111); CREATININE 0.7 mg/dL (0.5-1.5); GLOMERULAR FILTR. RATE CALC 89 mL/min (>60); GLUCOSE,RANDOM 235 mg/dL (70-105); LACTATE DEHYDROGENASE 227 U/L (81-234); POTASSIUM 3.8 mmol/L (3.5-5.1); SODIUM SERUM 141 mmol/L (136-145); UREA NITROGEN, BLOOD 29 mg/dL (7-18)
[2020-12-18 04:32] LABS: CRP QUANTITATIVE < 2.00 mg/L (0.00-9.0)
[2020-12-18] MEDS: INSULIN HUMULIN R 100 UNIT/ML 3ML SQ SCH ×4 (06:37→20:21)
[2020-12-18 08:26] VITALS: BP 139/72
[2020-12-18] MEDS: ZINC SULFATE 220 CAPSULE PO SCH (08:29)
[2020-12-18] MEDS: ASCORBIC ACID 500 MG TAB PO SCH (08:29)
[2020-12-18] MEDS: ACETYLCYSTEINE 600 MG CAPSULE PO SCH ×2 (08:29→20:23)
[2020-12-18] MEDS: AMLODIPINE 5 MG TAB PO SCH (08:29)
[2020-12-18] MEDS: FLUCONAZOLE 200 MG/NS 100 ML 100 ML IV SCH (08:29)
[2020-12-18] MEDS: ENOXAPARIN SODIUM 40 MG/0.4 ML SYRINGE SQ SCH (08:30)
[2020-12-18] MEDS: FAMOTIDINE 20MG TAB PO SCH ×2 (08:30→20:23)
[2020-12-18 12:46] VITALS: BP 150/76
[2020-12-18 13:34] LABS: ABG BASE EXCESS 2.8 mmol/L (-2.0-3.0); ABG HCO3 26.8 mmol/L (21.0-28.0); ABG OXYGEN SATURATION 90.2 % (95.0-99.0); ABG PCO2 39 mmHg (32-45)
[2020-12-18 18:18] VITALS: BP 125/68
[2020-12-18] MEDS: INSULIN GLARGINE 100 UNITS/ML 10 ML VIAL SQ SCH (20:20)
[2020-12-19] VITALS: BP 117/62
[2020-12-19] MEDS: ALBUTEROL INHALER 90MCG/INH IH SCH ×7 (01:52→23:23)
[2020-12-19 04:00] VITALS: BP 133/59
[2020-12-19] MEDS: SOLU-MEDROL 125MG VIAL IVP SCH ×4 (04:14→19:59)
[2020-12-19 06:13] LABS: BASOPHILS % (AUTO) 0.1 % (0.0-5.0); HEMATOCRIT 38.1 % (36-48); LYMPHOCYTES % (AUTO) 2.1 % (21.0-51.0); MEAN CORPUSCULAR HGB CONC 33.6 g/dL (32.0-36.0); MEAN CORPUSCULAR VOLUME 89.2 fL (79-99); MONOCYTES % (AUTO) 1.1 % (3.0-13.0); PLATELET COUNT (AUTO) 126 K/uL (130-400); RED BLOOD CELL COUNT(AUTO) 4.27 MIL/uL (4.00-5.50); RED CELL DISTRIBUTION WIDTH 13.5 % (11.0-15.5); WHITE BLOOD COUNT (AUTO) 10.6 K/uL (4.8-10.8)
[2020-12-19 06:40] LABS: CREATININE 0.6 mg/dL (0.5-1.5); POTASSIUM 3.8 mmol/L (3.5-5.1)
[2020-12-19] MEDS: INSULIN HUMULIN R 100 UNIT/ML 3ML SQ SCH ×4 (06:58→20:53)
[2020-12-19 07:30] VITALS: BP 160/75
[2020-12-19] MEDS: ACETYLCYSTEINE 600 MG CAPSULE PO SCH ×2 (08:16→19:59)
[2020-12-19] MEDS: ENOXAPARIN SODIUM 40 MG/0.4 ML SYRINGE SQ SCH (08:16)
[2020-12-19] MEDS: AMLODIPINE 5 MG TAB PO SCH (08:16)
[2020-12-19] MEDS: ZINC SULFATE 220 CAPSULE PO SCH (08:16)
[2020-12-19] MEDS: FLUCONAZOLE 200 MG/NS 100 ML 100 ML IV SCH (08:16)
[2020-12-19] MEDS: ASCORBIC ACID 500 MG TAB PO SCH (08:16)
[2020-12-19] MEDS: FAMOTIDINE 20MG TAB PO SCH ×2 (08:17→19:59)
[2020-12-19 11:00] VITALS: BP 143/74
[2020-12-19 16:00] VITALS: BP 140/79
[2020-12-19 20:34] VITALS: BP 141/74
[2020-12-19] MEDS: INSULIN GLARGINE 100 UNITS/ML 10 ML VIAL SQ SCH (20:54)
[2020-12-20 00:12] VITALS: BP 130/79
[2020-12-20] MEDS: SOLU-MEDROL 125MG VIAL IVP SCH ×3 (02:40→15:41)
[2020-12-20] MEDS: ALBUTEROL INHALER 90MCG/INH IH SCH (03:21)
[2020-12-20 04:29] VITALS: BP 135/65
[2020-12-20 05:10] LABS: BASOPHILS % (AUTO) 0.1 % (0.0-5.0); MEAN CORPUSCULAR HEMOGLOBIN 29.7 pg (27.0-33.0); MEAN CORPUSCULAR HGB CONC 33.5 g/dL (32.0-36.0); MEAN CORPUSCULAR VOLUME 88.5 fL (79-99); NEUTROPHILS % (AUTO) 96.3 % (40.0-77.0); PLATELET COUNT (AUTO) 114 K/uL (130-400); RED BLOOD CELL COUNT(AUTO) 4.18 MIL/uL (4.00-5.50); RED CELL DISTRIBUTION WIDTH 13.6 % (11.0-15.5); WHITE BLOOD COUNT (AUTO) 10.4 K/uL (4.8-10.8)
[2020-12-20] MEDS: INSULIN HUMULIN R 100 UNIT/ML 3ML SQ SCH ×2 (05:37→12:06)
[2020-12-20 05:41] LABS: CREATININE 0.7 mg/dL (0.5-1.5); POTASSIUM 3.7 mmol/L (3.5-5.1)
[2020-12-20] MEDS: ACETYLCYSTEINE 600 MG CAPSULE PO SCH (10:06)
[2020-12-20] MEDS: ASCORBIC ACID 500 MG TAB PO SCH (10:06)
[2020-12-20] MEDS: ZINC SULFATE 220 CAPSULE PO SCH (10:06)
[2020-12-20] MEDS: AMLODIPINE 5 MG TAB PO SCH (10:06)
[2020-12-20] MEDS: FLUCONAZOLE 200 MG/NS 100 ML 100 ML IV SCH (10:06)
[2020-12-20] MEDS: ENOXAPARIN SODIUM 40 MG/0.4 ML SYRINGE SQ SCH (10:07)
[2020-12-20] MEDS: FAMOTIDINE 20MG TAB PO SCH (10:07)
[2020-12-20 11:23] VITALS: BP 138/74
== END 2020-12-20 16:12 | DRG 177 ==
LOC: EDH 09:18 → EDHIP 11:50 → 4BH 15:28 → 2CH 12-04 14:51 → 4AH 12-10 02:55
PROVIDERS: ADMIT Hospitalist; ATTEND Hospitalist
PROC: XW13325 Transfusion of Convalescent Plasma (Nonautologous) into Peripheral Vein, Percutaneous Approach, New Technology Group 5 (ICD-10-PCS; 2020-12-01)
PROC: XW033E5 Introduction of Remdesivir Anti-infective into Peripheral Vein, Percutaneous Approach, New Technology Group 5 (ICD-10-PCS; principal; 2020-12-02)
PROC: 5A09357 Assistance with Respiratory Ventilation, Less than 24 Consecutive Hours, Continuous Positive Airway Pressure (ICD-10-PCS; 2020-12-04)
PROC: 5A09357 Assistance with Respiratory Ventilation, Less than 24 Consecutive Hours, Continuous Positive Airway Pressure (ICD-10-PCS; 2020-12-05)
PROC: 5A0935A Assistance with Respiratory Ventilation, Less than 24 Consecutive Hours, High Flow/Velocity Cannula (ICD-10-PCS; 2020-12-06)
PROC: 5A09357 Assistance with Respiratory Ventilation, Less than 24 Consecutive Hours, Continuous Positive Airway Pressure (ICD-10-PCS; 2020-12-06)
PROC: 5A0935A Assistance with Respiratory Ventilation, Less than 24 Consecutive Hours, High Flow/Velocity Cannula (ICD-10-PCS; 2020-12-07)
PROC: 5A09357 Assistance with Respiratory Ventilation, Less than 24 Consecutive Hours, Continuous Positive Airway Pressure (ICD-10-PCS; 2020-12-07)
PROC: 5A0935A Assistance with Respiratory Ventilation, Less than 24 Consecutive Hours, High Flow/Velocity Cannula (ICD-10-PCS; 2020-12-08)
PROC: 5A09357 Assistance with Respiratory Ventilation, Less than 24 Consecutive Hours, Continuous Positive Airway Pressure (ICD-10-PCS; 2020-12-08)
PROC: 5A0935A Assistance with Respiratory Ventilation, Less than 24 Consecutive Hours, High Flow/Velocity Cannula (ICD-10-PCS; 2020-12-09)
PROC: 5A09357 Assistance with Respiratory Ventilation, Less than 24 Consecutive Hours, Continuous Positive Airway Pressure (ICD-10-PCS; 2020-12-09)
PROC: 5A0935A Assistance with Respiratory Ventilation, Less than 24 Consecutive Hours, High Flow/Velocity Cannula (ICD-10-PCS; 2020-12-10)
PROC: 5A09457 Assistance with Respiratory Ventilation, 24-96 Consecutive Hours, Continuous Positive Airway Pressure (ICD-10-PCS; 2020-12-10)
PROC: 5A09357 Assistance with Respiratory Ventilation, Less than 24 Consecutive Hours, Continuous Positive Airway Pressure (ICD-10-PCS; 2020-12-14)
PROC: 5A0935A Assistance with Respiratory Ventilation, Less than 24 Consecutive Hours, High Flow/Velocity Cannula (ICD-10-PCS; 2020-12-15)
PROC: 5A09357 Assistance with Respiratory Ventilation, Less than 24 Consecutive Hours, Continuous Positive Airway Pressure (ICD-10-PCS; 2020-12-15)
PROC: 5A09457 Assistance with Respiratory Ventilation, 24-96 Consecutive Hours, Continuous Positive Airway Pressure (ICD-10-PCS; 2020-12-16)
PROC: 5A0935A Assistance with Respiratory Ventilation, Less than 24 Consecutive Hours, High Flow/Velocity Cannula (ICD-10-PCS; 2020-12-19)
PROC: 5A0935A Assistance with Respiratory Ventilation, Less than 24 Consecutive Hours, High Flow/Velocity Cannula (ICD-10-PCS; 2020-12-20)
DX: U07.1 COVID-19 (principal); J12.82 Pneumonia due to coronavirus disease 2019; J80 Acute respiratory distress syndrome; D68.59 Other primary thrombophilia; E87.0 Hyperosmolality and hypernatremia; E66.01 Morbid (severe) obesity due to excess calories; T38.0X5A Adverse effect of glucocorticoids and synthetic analogues, initial encounter; E11.65 Type 2 diabetes mellitus with hyperglycemia; G47.33 Obstructive sleep apnea (adult) (pediatric); I10 Essential (primary) hypertension; Z79.4 Long term (current) use of insulin; Z80.1 Family history of malignant neoplasm of trachea, bronchus and lung; Z83.3 Family history of diabetes mellitus; Z82.49 Family history of ischemic heart disease and other diseases of the circulatory system; Y92.89 Other specified places as the place of occurrence of the external cause; Z68.35 Body mass index [BMI] 35.0-35.9, adult
CPT/HCPCS: 36415; 36430; 36600; 71045; 80048; 80053; 80076; 81001; 82550; 82728; 82803; 82948; 83036; 83605; 83615; 83735; 83874; 84145; 84484; 85025; 85027; 85378; 85384; 85610; 85651; 85730; 86140; 86900; 86901; 86927; 87040; 87088; 87426; 93005; 94660; 97039; G0378; J0456; J0696; J1100; J1450; J1644; J1650; J1815; J2405; J2930; J7050